=== PATIENT | male | born 1970 | race Hispanic/Latino ===

== ENCOUNTER 2019-06-06 23:55 | Emergency (ER) | payer SELFPAY ==
[2019-06-07] MEDS ORDERED: ANTIBIOTIC OINT TP ONE (00:49)
[2019-06-07] MEDS ORDERED: DILAUDID IM ONE ×2 (00:49→01:50)
[2019-06-07] MEDS ORDERED: DILAUDID ONE (00:50)
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
--- NOTE | 2019-06-07 01:00 | XRay Report ---
RIGHT CLAVICLE 2 VIEWS INDICATION / CLINICAL INFORMATION: Right clavicle pain. COMPARISON: None available. FINDINGS: BONES and JOINT(S): There is an acute fracture through the middle third of the right clavicle with ov erlapping segments. No dislocation. No significant arthritis. SOFT TISSUES: No significant abnormality. ADDITIONAL FINDINGS: None. IMPRESSION: Acute right clavicle fracture. Signer Name: Kole Roach MD Signed: 06/07/2019 12:55 AM Workstation Name: [email or web address]
--- NOTE | 2019-06-07 01:03 | XRay Report ---
RIGHT RIBS PLUS CHEST 4 VIEWS INDICATION / CLINICAL INFORMATION: Right rib and chest pain. COMPARISON: None available. FINDINGS: BONES and JOINT(S): There is acute fracture of the middle third of the right clavicle with mild displ acement. Fractures of the posterior right fifth and seventh ribs are of uncertain age. No dislocation is seen. No significant arthritis. SOFT TISSUES: No significant abnormality. ADDITIONAL FINDINGS: None. IMPRESSION: 1. Acute right clavicle fracture. 2. Fractures of the right fifth and seventh ribs are of uncertain age. Please correlate with the clin ical findings. Signer Name: Kole Roach MD Signed: 06/07/2019 12:59 AM Workstation Name: [id number]
--- NOTE | 2019-06-07 02:21 | XRay Report ---
BILATERAL ELBOWS 7 VIEWS INDICATION / CLINICAL INFORMATION: Bilateral elbow abrasions after fall. Bilateral elbow pain. COMPARISON: None available. FINDINGS: BONES and JOINT(S): No acute fracture or subluxation. No significant arthritis. SOFT TISSUES: No significant abnormality. ADDITIONAL FINDINGS: None. IMPRESSION: No acute findings. Signer Name: Kole Roach MD Signed: 06/07/2019 2:17 AM Workstation Name: [id number]
[2019-06-07 02:32] VITALS: BP 167/100
== END 2019-06-07 02:55 | disposition home or self-care (01) ==
LOC: ED 23:55
DX: S42.021A Displaced fracture of shaft of right clavicle, initial encounter for closed fracture (principal); S50.312A Abrasion of left elbow, initial encounter; S50.311A Abrasion of right elbow, initial encounter; W18.30XA Fall on same level, unspecified, initial encounter; Y93.89 Activity, other specified; Y92.89 Other specified places as the place of occurrence of the external cause; Y99.8 Other external cause status
CPT/HCPCS: 71101; 73000; 73080; 96372; 99284; J1170

== ENCOUNTER 2020-08-16 06:06 | Emergency (ER) | payer SELFPAY ==
[2020-08-16] MEDS ORDERED: ASPIRIN 325 MG TAB PO ONE (06:28)
--- NOTE | 2020-08-16 07:19 | XRay Report ---
CHEST 1 VIEW INDICATION: Chest Pain COMPARISON: None FINDINGS: Support devices: None Heart: Normal Lungs/Pleura: No acute pulmonary or pleural findings. IMPRESSION: 1. No acute disease. Signer Name: Bertin Morales MD Signed: 08/16/2020 7:14 AM Workstation Name: [id number]
[2020-08-16 07:31] LABS: Basophils # (Auto) 0.1 K/mm3 (0.0-0.1); Basophils % (Auto) 1.2 % (0.0-1.8); Eosinophils # (Auto) 0.1 K/mm3 (0.0-0.4); Eosinophils % (Auto) 1.4 % (0.0-4.3); Hematocrit 41.6 % (35.5-45.6); Hemoglobin 14.3 gm/dl (11.8-15.2); Lymphocytes # (Auto) 1.9 K/mm3 (1.2-5.4); Lymphocytes % (Auto) 20.3 % (13.4-35.0); Mean Corpuscular HGB Conc 34 % (32-34); Mean Corpuscular Volume 92 fl (84-94); Monocytes # (Auto) 0.6 K/mm3 (0.0-0.8); Monocytes % (Auto) 6.4 % (0.0-7.3); Platelet Count 240 K/mm3 (140-440); Red Blood Count 4.54 M/mm3 (3.65-5.03); Red Cell Distribution Width 14.5 % (13.2-15.2)
[2020-08-16 07:45] LABS: BUN/Creatinine Ratio 18; Blood Urea Nitrogen 14 mg/dL (9-20); Calcium 9.1 mg/dL (8.4-10.2); Hemolysis Index 154
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
[2020-08-16 11:29] VITALS: BP 181/107
[2020-08-16] MEDS ORDERED: amLODIPine 5 MG TAB PO ONE (11:33)
== END 2020-08-16 11:44 | disposition admitted as inpatient to this hospital (09) ==
LOC: ED 06:06
DX: I10 Essential (primary) hypertension (principal); R07.89 Other chest pain; N20.0 Calculus of kidney; F17.200 Nicotine dependence, unspecified, uncomplicated; Z98.890 Other specified postprocedural states; Z79.82 Long term (current) use of aspirin; Z79.1 Long term (current) use of non-steroidal anti-inflammatories (NSAID); Z79.2 Long term (current) use of antibiotics; Z79.899 Other long term (current) drug therapy; Z88.0 Allergy status to penicillin
CPT/HCPCS: 36415; 71045; 80048; 84484; 85025; 93005

== ENCOUNTER 2021-02-12 19:21 | Inpatient (IN) | payer OTHER ==
[2021-02-12] MEDS ORDERED: MORPHINE 4 MG/1 ML INJ IV ONE (19:49)
[2021-02-12] MEDS ORDERED: KETOROLAC 30 MG/1 ML INJ IV ONE (19:49)
[2021-02-12] MEDS ORDERED: ONDANSETRON 4 MG/2 ML INJ IV ONE (19:49)
--- NOTE | 2021-02-12 19:51 | Event Note ---
ED Screening Note Date of service: 02/12/21 Time: 19:49 ED Screening Note: 50-year-old male patient with history of recurrent kidney stones presents to the emergency department complaints of nontraumatic left lower back pain starting today. Patient reports associated nausea and hematuria. States his current symptoms are reminiscent of prior kidney stone requiring lithotripsy, 11 mm. General: Awake, appropriately interactive. Appears uncomfortable. Neck: Supple. Full range of motion intact. Cardiovascular: Normal peripheral perfusion. Pulmonary: No respiratory distress. Patient is speaking normally without use of accessory muscles. Abdomen: Soft, nontender. Skin: No apparent rashes or lesions. Neurological: No facial asymmetry. Speech is clear. Follows commands. Patient is alert and oriented. Musculoskeletal: Left CVA tenderness. Psych: Cooperative. Appropriate mood and affect. This initial assessment/diagnostic orders/clinical plan/treatment(s) is/are subject to change based on patients health status, clinical progression and re- assessment by fellow clinical providers in the ED. Further treatment and workup at subsequent clinical providers discretion. Patient/guardian urged not to elope from the ED as their condition may be serious if not clinically assessed and m anaged.
[2021-02-12 20:20] LABS: Basophils # (Auto) 0.1 K/mm3 (0.0-0.1); Basophils % (Auto) 0.5 % (0.0-1.8); Eosinophils # (Auto) 0.1 K/mm3 (0.0-0.4); Eosinophils % (Auto) 0.5 % (0.0-4.3); Hematocrit 41.9 % (35.5-45.6); Hemoglobin 14.1 gm/dl (11.8-15.2); Lymphocytes # (Auto) 1.6 K/mm3 (1.2-5.4); Lymphocytes % (Auto) 9.9 % (13.4-35.0); Mean Corpuscular HGB Conc 34 % (32-34); Mean Corpuscular Volume 92 fl (84-94); Monocytes # (Auto) 1.2 K/mm3 (0.0-0.8); Platelet Count 283 K/mm3 (140-440); Red Blood Count 4.55 M/mm3 (3.65-5.03); Red Cell Distribution Width 14.4 % (13.2-15.2)
--- NOTE | 2021-02-12 20:56 | Cat Scan Report ---
CT ABDOMEN AND PELVIS WITHOUT CONTRAST INDICATION: Left-sided flank pain. History of kidney stones. TECHNICAL: Multiple axial CT images of the abdomen and pelvis were acquired without intravenous contr ast. Sagittal and coronal reformats were obtained. All CTs at this facility utilize dose reduction techniques including automated exposure control, iterative reconstruction and weight based dosing whe n appropriate to reduce patient radiation dose to as low as reasonable achievable. COMPARISON: No relevant prior studies are available for comparison. FINDINGS: Limited imaging of the bilateral lung bases demonstrates emphysematous change. ABDOMEN: The liver, gallbladder, stomach, spleen, pancreas, bilateral adrenal glands and right kidney show no evidence of acute abnormality. There are a few punctate nonobstructing stones within the right kidney . There is moderate left-sided hydronephrosis and perinephric stranding. There is also moderate dilatat ion of the left ureter. There is an obstructing stone in the mid left ureter measuring 0.8 x 1.1 cm. There is no evidence of bowel obstruction. The abdominal aorta is normal in caliber with minimal athe rosclerotic calcifications. The appendix is visualized and appears normal. PELVIS: No free fluid is seen within the pelvis. The urinary bladder appears normal. BONES AND SOFT TISSUES: No significant abnormality. IMPRESSION: 1. Obstructing 1.1 cm stone in the mid left ureter causing moderate left-sided hydronephrosis and hyd roureter. Signer Name: Teresa Le MD Signed: 02/12/2021 8:52 PM Workstation Name: [id number]
[2021-02-12 21:12] LABS: Alanine Aminotransferase 21 units/L (7-56); Albumin 4.3 g/dL (3.9-5); BUN/Creatinine Ratio 19; Blood Urea Nitrogen 19 mg/dL (9-20); Calcium 10.1 mg/dL (8.4-10.2); Hemolysis Index 27
[2021-02-12 21:54] LABS: Bilirubin,Urine NEG (Negative); Blood,Urine LG (Negative); Color,Urine Red (Yellow); Mucus,Urine FEW /HPF; Urobilinogen,Urine < 2.0 mg/dL (<2.0)
[2021-02-12 21:56] LABS: RBC,Urine > 182.0 /HPF (0.0-6.0)
[2021-02-12] MEDS ORDERED: MORPHINE 4 MG/1 ML INJ ONE (22:58)
[2021-02-12] MEDS ORDERED: ONDANSETRON 4 MG/2 ML INJ ONE (22:58)
[2021-02-12] MEDS ORDERED: SODIUM CHLORIDE 0.9% 1000 ML 1,000 ML ONE (22:58)
[2021-02-12] MEDS ORDERED: KETOROLAC 30 MG/1 ML INJ ONE (23:01)
[2021-02-12] MEDS ORDERED: HYDROmorphone 1 MG/1 ML INJ IV ONE (23:08)
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
[2021-02-13] MEDS ORDERED: MAGNESIUM HYDROXIDE (MOM) ORAL LIQD UDC PO PRN (00:14)
[2021-02-13] MEDS ORDERED: DOCUSATE SODIUM 100 MG CAP PO PRN (00:14)
[2021-02-13] MEDS ORDERED: ONDANSETRON 4 MG/2 ML INJ IV PRN ×2 (00:14→14:56)
[2021-02-13] MEDS ORDERED: SENNOSIDES 8.6 MG TAB PO PRN (00:14)
[2021-02-13] MEDS ORDERED: ALUM-MAG HYDROXIDE-SIMETHICONE 200-200-20MG/5ML ORAL LIQD 30 ML PO PRN (00:14)
[2021-02-13] MEDS ORDERED: SODIUM CHLORIDE 0.9% 1000 ML 1,000 ML IV SCH (00:15)
[2021-02-13] MEDS ORDERED: traZODone 50 MG TAB PO PRN (00:17)
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
[2021-02-13] MEDS ORDERED: MORPHINE 2 MG/1 ML INJ ONE (00:28)
[2021-02-13] MEDS ORDERED: methylPREDNISolone Sod Succinate 125 MG/2 ML INJ ONE (00:35)
[2021-02-13] MEDS ORDERED: diphenhydrAMINE 50 MG/ML VIAL ONE (00:35)
[2021-02-13] MEDS ORDERED: methylPREDNISolone Sod Succinate 125 MG/2 ML INJ IV ONE (01:11)
[2021-02-13] MEDS ORDERED: diphenhydrAMINE 50 MG/ML VIAL IV ONE (01:11)
[2021-02-13] MEDS ORDERED: HYDROmorphone 1 MG/1 ML INJ IV ONE (01:11)
[2021-02-13] MEDS ORDERED: hydrALAZINE 20 MG/1 ML INJ IV PRN (01:19)
[2021-02-13] MEDS ORDERED: hydrALAZINE 20 MG/1 ML INJ IV SCH (02:00)
[2021-02-13] MEDS: cefTRIAXone/NS 1 GM/50 ML 1 GM/50 ML BAG IV SCH ×2 (02:18→10:00)
[2021-02-13] MEDS: MORPHINE 2 MG/1 ML INJ IV PRN ×3 (04:17→20:20)
[2021-02-13] MEDS: ACETAMINOPHEN 325 MG TAB PO PRN (06:00)
[2021-02-13] MEDS ORDERED: HYDROmorphone 2 MG/1 ML INJ IV ONE (07:45)
[2021-02-13] MEDS: ENOXAPARIN 40 MG/0.4 ML INJ SUB-Q SCH ×2 (08:27→12:30)
[2021-02-13] MEDS: FAMOTIDINE 20 MG/2 ML INJ IV SCH ×3 (08:28→21:13)
[2021-02-13] MEDS: METOCLOPRAMIDE 10 MG/2 ML INJ IV PRN ×2 (08:29→20:21)
[2021-02-13] MEDS ORDERED: LORazepam 2 MG/ML VIAL IV ONE (08:37)
[2021-02-13] MEDS: D5W/0.9% NACL 1,000 ML IV SCH ×2 (10:48→20:33)
--- NOTE | 2021-02-13 11:08 | Progress Note ---
Assessment and Plan (1) Pyelonephritis Current Visit: Yes Status: Acute Plan to address problem: Antibiotic therapy Urine culture follow-up with results (2) Kidney stone on left side Current Visit: Yes Status: Acute Plan to address problem: CT of the abdomen shows kidney stone Continue IV hydration Pain management (3) Hydronephrosis Current Visit: Yes Status: Acute Qualifiers: Hydronephrosis type: with ureteral calculous obstruction Qualified Code(s): N13.2 - Hydronephrosis with renal and ureteral calculous obstruction Plan to address problem: Continue IV hydration CT of the abdomen and pelvis shows obstructing kidney stone And hydronephrosis (4) Low back strain Current Visit: No Status: Acute Plan to address problem: pain management (5) Leukocytosis with SIRS Current Visit: Yes Status: Acute Plan to address problem: Likely secondary to kidney infection and nephrolithiasis Monitor WBC follow-up with a urine culture result Continue IV hydration (6) DVT prophylaxis Current Visit: Yes Status: Acute Plan to address problem: SQ Lovenox Daily clinical course: 02/13/21; continue empiric antibiotics, continue IV pain management as needed, aggressive IV fluid. Discussed with urology we will keep the patient n.p.o. Follow temperature curve monitor CBC and BMP. Subjective Date of service: 02/13/21 Interval history: Patient seen and examined. Medical records and medication list reviewed. No acute event overnight noted by the RN. Patient complaining of left lower back pain. Discussed with urologist by phone Discussed plan of care at bedside with patient. Objective - Exam Narrative Exam: GENERAL: well-developed and well-nourished white male lying on bed appeared to be in no discomfort. HEENT: Normocephalic. Atraumatic. No conjunctival congestion or icterus. Patient has moist mucous membranes. NECK: Supple. Trachea midline. CHEST/LUNGS: Clear to auscultated bilaterally, breathing nonlabored. No wheezes crackles or rhonchi. HEART/CARDIOVASCULAR: Regular in rate and rhythm. S1 and S2 positive. ABDOMEN: Abdomen is soft, left CVA tenderness. Patient has normal bowel sounds. SKIN: There is no rash. Warm and dry. NEURO: No focal motor deficit. Follows command. MUSCULOSKELETAL: No joint effusion or tenderness. EXTRIMITY: No edema, no cyanosis or clubbing. PSYCH: Cooperative. - Constitutional Vitals: Vital Signs - 12hr 02/13/21 02/13/21 02/13/21 01:03 05:52 05:58 Temperature 98.3 F Pulse Rate 67 74 75 Respiratory 16 24 Rate Blood Pressure 188/121 188/121 Blood Pressure 163/107 [right arm] O2 Sat by Pulse 96 97 Oximetry 02/13/21 08:22 Temperature Pulse Rate Respiratory 20 Rate Blood Pressure Blood Pressure 168/100 [right arm] O2 Sat by Pulse Oximetry - Labs CBC & Chem 7: 02/12/21 20:07 02/12/21 20:07 Labs: Abnormal lab results 02/12/21 02/12/21 02/12/21 Range/Units 20:07 20:07 Unknown WBC 16.5 H (4.5-11.0) K/mm3 Lymph % (Auto) 9.9 L (13.4-35.0) % [place] # (Auto) 1.2 H (0.0-0.8) K/mm3 Seg Neutrophils % 82.1 H (40.0-70.0) % Seg Neutrophils # 13.5 H (1.8-7.7) K/mm3 Sodium 136 L (137-145) mmol/L Chloride 97.3 L (98-107) mmol/L Glucose 130 H (75-100) mg/dL Urine WBC (Auto) 27.0 H (0.0-6.0) /HPF
[2021-02-13] MEDS: amLODIPine 10 MG TAB PO SCH (12:31)
[2021-02-13] MEDS ORDERED: propofoL 200 MG/20 ML VIAL IV ONE (14:46)
[2021-02-13] MEDS ORDERED: HYDROmorphone 1 MG/1 ML INJ ONE (14:46)
[2021-02-13] MEDS ORDERED: LIDOCAINE MPF (2%) 20 MG/1 ML VIAL 5 ML ONE (14:46)
[2021-02-13] MEDS ORDERED: HYDROmorphone 1 MG/1 ML INJ IV PRN ×2 (14:56)
--- NOTE | 2021-02-13 14:57 | Anesthesia Day of Surgery ---
Anesthesia Day of Surgery - Day of Surgery Patient Examined: Yes Patient H&P Reviewed: Yes Patient is NPO: Yes
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
[2021-02-13] MEDS ORDERED: SODIUM CHLORIDE 0.9% 1000 ML 1,000 ML ONE (15:41)
[2021-02-13] MEDS ORDERED: GENTAMICIN 40 MG/ML VIAL 2 ML ONE (15:43)
[2021-02-13] MEDS ORDERED: WATER FOR IRRIG STERILE 2000 ML IR ONE (15:56)
[2021-02-13] MEDS ORDERED: WATER FOR IRRIG STERILE 1,500 ML BOTTLE IR ONE (15:56)
[2021-02-13] MEDS ORDERED: KETOROLAC 30 MG/1 ML INJ ONE (15:58)
[2021-02-13] MEDS ORDERED: SODIUM CHLORIDE 0.9% 100 ML ONE (15:59)
[2021-02-13] MEDS ORDERED: ONDANSETRON 4 MG/2 ML INJ ONE (15:59)
--- NOTE | 2021-02-13 16:06 | Post Operative Note ---
Date of procedure: 02/13/21 Pre-op diagnosis: left UPJ STONE Post-op diagnosis: same Procedure: CYSTO, RPG, LEFT STENT WITH EXTERNAL STRING Anesthesia: KYLE Surgeon: THONY GARCIA Pathology: none Condition: stable Disposition: PACU ([facility], POST OP INFO ON CHART/OK TO DC HOME / NEEDS ESWL)
--- NOTE | 2021-02-13 16:19 | Post Anesthesia Evaluation ---
- Post Anesthesia Evaluation Patient Participated: Yes Airway Patent: Yes Stable Respiratory Function: Yes Nausea/Vomiting: No Temp > 96.8F: Yes Pain Manageable: Yes Adequeate Hydration: Yes Anesthesia Complications: No Block Receding Appropriately: Not Applicable Patient on Ventilator: No
--- NOTE | 2021-02-13 17:10 | Operative Report ---
PREOPERATIVE DIAGNOSIS: Left ureteropelvic junction stone, 1 cm. POSTOPERATIVE DIAGNOSIS: Left ureteropelvic junction stone, 1 cm with colic. PROCEDURES: Cystoscopy, bilateral retrograde pyelograms, left double-J stent placement (6-Cameroonian 24 cm with an external string). SURGEON: Fernando Mojica MD. ANESTHESIA: General. ESTIMATED BLOOD LOSS: Minimal. FLUIDS: Crystalloid. COMPLICATIONS: No complications. INDICATIONS: This patient is a 50-year-old gentleman presented to the Emergency Room with left flank pain. CT of abdomen and pelvis revealed a 1-cm left renal proximal ureteral versus ureteropelvic junction stone with hydro. The patient also has a history of back pain and back surgery. He was admitted to the hospital and we were consulted on the floor for evaluation. The patient continued to have persistent pain, presents now for surgical intervention. He has a history of stones in the past. DESCRIPTION OF PROCEDURE: The patient was taken to the operative suite, placed in a supine position. After adequate general anesthesia, placed in a dorsal lithotomy position, prepped and draped in a sterile fashion. Pancystourethroscopy was performed with a 22-Cameroonian Storz cystoscope, no urethral abnormalities. Prostate minimally obstructing. Bladder, no tumors or stones were noted. Both ureteral orifices in normal position. Bilateral retrograde pyelograms were obtained with an 8-Cameroonian Rosi catheter and 8 mL of contrast. No filling defects or obstruction on the right. Left side, obvious 1 cm UPJ stone. A 0.035 Glidewire was placed, 6-Cameroonian 24 cm double-J stent with an external string was left indwelling, confirmed under fluoroscopy to be in excellent position. Bladder was drained. Rectal exam was benign. He was extubated and taken to recovery room. He will go home on Bactrim and Burnet and follow up in the office. JOB# [id number] [facility]
--- NOTE | 2021-02-13 18:26 | Fluoroscopy Report ---
EXAMINATION: Retrograde urography, 02/13/2021 CLINICAL INFORMATION: History of left-sided renal stone. COMPARISON: CT of the abdomen and pelvis, 02/12/2021 FINDINGS: There is retrograde filling of both collecting systems. Small circumscribed filling defect is noted w ithin the mid right ureter which may be related to small amount of air. Subsequent images demonstrate placement of guidewire followed by double-J ureteral stent projecting i n expected position. Please see procedure report from the performing physician for additional details. IMPRESSION: 1. Placement of left-sided ureteral stent in expected position. Fluoroscopy time: 47 seconds. Fluoroscopy images: 5. Signer Name: Teresa Le MD Signed: 02/13/2021 6:21 PM Workstation Name: [id number]
[2021-02-14] MEDS: HYDROmorphone 1 MG/1 ML INJ IV PRN ×3 (03:19→12:16)
[2021-02-14] MEDS: MORPHINE 2 MG/1 ML INJ IV PRN ×2 (05:13→10:14)
[2021-02-14] MEDS: D5W/0.9% NACL 1,000 ML IV SCH (05:20)
[2021-02-14] MEDS: FAMOTIDINE 20 MG/2 ML INJ IV SCH (09:13)
[2021-02-14] MEDS: cefTRIAXone/NS 1 GM/50 ML 1 GM/50 ML BAG IV SCH (09:13)
[2021-02-14] MEDS: amLODIPine 10 MG TAB PO SCH (09:13)
[2021-02-14 09:14] LABS: Basophils % (Auto) 0.1 % (0.0-1.8); Hematocrit 37.8 % (35.5-45.6); Hemoglobin 12.4 gm/dl (11.8-15.2); Lymphocytes # (Auto) 1.5 K/mm3 (1.2-5.4); Mean Corpuscular HGB Conc 33 % (32-34); Mean Corpuscular Volume 92 fl (84-94); Monocytes # (Auto) 1.1 K/mm3 (0.0-0.8); Monocytes % (Auto) 6.7 % (0.0-7.3); Platelet Count 249 K/mm3 (140-440); Red Blood Count 4.11 M/mm3 (3.65-5.03); Red Cell Distribution Width 14.7 % (13.2-15.2)
[2021-02-14] MEDS: ENOXAPARIN 40 MG/0.4 ML INJ SUB-Q SCH (09:14)
[2021-02-14] MEDS: ACETAMINOPHEN 325 MG TAB PO PRN (09:27)
[2021-02-14 09:42] LABS: Alanine Aminotransferase 11 units/L (7-56); Albumin 3.3 g/dL (3.9-5); BUN/Creatinine Ratio 17; Blood Urea Nitrogen 15 mg/dL (9-20); Calcium 8.1 mg/dL (8.4-10.2); Hemolysis Index 3
--- NOTE | 2021-02-14 10:37 | Discharge Summary ---
Providers - Providers Date of Admission: 02/12/21 23:18 Date of discharge: 02/14/21 Attending physician: JERRI BLOUNT [facility] Condition: Critical Disposition: DC-01 TO HOME OR SELFCARE Final Discharge Diagnosis (Prints w/discharge instructions): Acute pyelonephritis, left sided nephrolithiasis, left hydronephrosis, leukocytosis with SIRS, hypertension. Time spent for discharge: 34 minutes Core Measure Documentation - Palliative Care Palliative Care/ Comfort Measures: Not Applicable - Core Measures Any of the following diagnoses?: none Exam - Physical Exam Narrative exam: GENERAL: well-developed and well-nourished white male lying on bed appeared to be in no discomfort. HEENT: Normocephalic. Atraumatic. No conjunctival congestion or icterus. Patient has moist mucous membranes. NECK: Supple. Trachea midline. CHEST/LUNGS: Clear to auscultated bilaterally, breathing nonlabored. No wheezes crackles or rhonchi. HEART/CARDIOVASCULAR: Regular in rate and rhythm. S1 and S2 positive. ABDOMEN: Abdomen is soft, left CVA tenderness. Patient has normal bowel sounds. SKIN: There is no rash. Warm and dry. NEURO: No focal motor deficit. Follows command. MUSCULOSKELETAL: No joint effusion or tenderness. EXTRIMITY: No edema, no cyanosis or clubbing. PSYCH: Cooperative. - Constitutional Vitals: Temp Pulse Resp BP Pulse Ox 99.5 F 82 18 168/92 96 02/13/21 21:46 02/14/21 09:13 02/13/21 21:46 02/14/21 09:13 02/13/21 21:46 Plan Activity: advance as tolerated Weight Bearing Status: Weight Bear as Tolerated Diet: low fat, low salt Additional Instructions: Follow-up with Dr. Mojica in 1 week. Resume baby aspirin after 1 week Follow up with: ILIA PATEL MD [Primary Care Provider] - 7 Days THONY MOJICA MD [Staff Physician] - 7 Days Prescriptions: Sulfamethoxazole/Trimethoprim [Bactrim DS TAB] 1 each PO BID #14 tablet Promethazine [Phenergan] 25 mg PO Q6H PRN #12 tablet PRN Reason: Nausea oxyCODONE [roxiCODONE] 5 mg PO Q6HR PRN #15 tablet PRN Reason: Pain lisinopriL [Zestril TAB] 5 mg PO QDAY #30 tablet
[2021-02-14 12:17] VITALS: BP 130/80
[2021-02-14] MEDS ORDERED: LISINOPRIL 5 MG TAB PO SCH (13:00)
== END 2021-02-14 14:00 | disposition home or self-care (01) | DRG 660 ==
LOC: ED 19:21 → 3A 23:18 → OBSVTOIN 23:18
PROVIDERS: ADMIT Internal Medicine Geriatric Medicine; ATTEND Internal Medicine
PROC: 0T778DZ Dilation of Left Ureter with Intraluminal Device, Via Natural or Artificial Opening Endoscopic (ICD-10-PCS; principal; 2021-02-13)
PROC: BT141ZZ Fluoroscopy of Kidneys, Ureters and Bladder using Low Osmolar Contrast (ICD-10-PCS; 2021-02-13)
DX: N13.6 Pyonephrosis (principal); N30.01 Acute cystitis with hematuria; R65.10 Systemic inflammatory response syndrome (SIRS) of non-infectious origin without acute organ dysfunction; Z88.1 Allergy status to other antibiotic agents; Z88.0 Allergy status to penicillin; G89.29 Other chronic pain; F17.200 Nicotine dependence, unspecified, uncomplicated; I10 Essential (primary) hypertension; S39.012A Strain of muscle, fascia and tendon of lower back, initial encounter; X58.XXXA Exposure to other specified factors, initial encounter; D72.829 Elevated white blood cell count, unspecified
CPT/HCPCS: 36415; 74176; 74420; 80053; 81001; 82962; 85025; 87086; 96365; 96375; G0378; A4217; C1758; C1769; C2617; J0360; J0696; J1170; J1200; J1580; J1650; J1885; J1956; J2060; J2270; J2405; J2704; J2765; J2930; J7030; J7042; Q9967

== ENCOUNTER 2021-02-25 08:55 | Day surgery (SDC) | payer OTHER ==
[~2021-02-25 08:55] MED LIST: LACTATED RINGERS 1,000 ML IV SCH; MIDAZOLAM 2 MG/2 ML INJ IV NR
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
--- NOTE | 2021-02-25 09:29 | Anesthesia Day of Surgery ---
Anesthesia Day of Surgery - Day of Surgery Patient Examined: Yes Patient H&P Reviewed: Yes Patient is NPO: Yes
[2021-02-25] MEDS ORDERED: ONDANSETRON 4 MG/2 ML INJ IV PRN (09:30)
[2021-02-25] MEDS ORDERED: HYDROcodone/ACETAMINOPHEN 5-325 MG TAB PO PRN (09:30)
[2021-02-25] MEDS ORDERED: fentaNYL 100 MCG/2 ML INJ IV PRN (09:30)
[2021-02-25] MEDS ORDERED: dexAMETHasone 20 MG/5 ML VIAL ONE (09:56)
[2021-02-25] MEDS ORDERED: fentaNYL 100 MCG/2 ML INJ ONE (09:56)
[2021-02-25] MEDS ORDERED: ONDANSETRON 4 MG/2 ML INJ ONE (09:56)
[2021-02-25] MEDS ORDERED: LIDOCAINE MPF (2%) 20 MG/1 ML VIAL 5 ML ONE (09:56)
[2021-02-25] MEDS ORDERED: propofoL 200 MG/20 ML VIAL IV ONE (09:57)
[2021-02-25] MEDS ORDERED: GENTAMICIN/NS 80 MG/100 ML 100 ML IV SCH (10:30)
--- NOTE | 2021-02-25 11:53 | Short Stay Summary ---
Short Stay Documentation Date of service: 02/25/21 - History H&P: obtained from office - Allergies and Medications Current Medications: Allergies Penicillins Allergy (Intermediate, Verified 11/30/14 12:07) Anaphylaxis levofloxacin [From Levaquin] Allergy (Verified 02/13/21 01:10) Hives Home Medications Medication Instructions Recorded Confirmed Last Taken Type Sulfamethoxazole/Trimethoprim 1 each PO BID #14 tablet 02/14/21 02/25/21 02/24/21 Rx [Bactrim DS TAB] lisinopriL [Zestril TAB] 5 mg PO QDAY #30 tablet 02/14/21 02/25/21 02/24/21 Rx oxyCODONE [roxiCODONE] 5 mg PO Q6HR PRN #15 tablet 02/14/21 02/25/21 02/24/21 Rx Aspirin 325 mg PO DAILY 02/24/21 02/24/21 1 Week Ago History ~02/18/21 Ibuprofen 2 cap PO PRN 02/24/21 02/24/21 1 Week Ago History ~02/18/21 Methodone 100 mg PO QDAY 02/24/21 02/25/21 02/25/21 06:00 History Active Medications Hydrocodone Bitart/Acetaminophen (Hydrocodone/Acetaminophen 5-325 Mg Tab) 2 each PO ONCE PRN PRN Reason: Pain, Moderate (4-6) Fentanyl (Fentanyl 100 Mcg/2 Ml Inj) 50 mcg IV Q5MIN PRN PRN Reason: Pain , Severe (7-10) Stop: 02/26/21 09:29 Lactated Ringer's (Lactated Ringers) 1,000 mls @ 100 mls/hr IV DIRECT KELOTN Stop: 02/25/21 23:59 Last Admin: 02/25/21 09:55 Dose: 100 mls/hr Documented by: Gentamicin Sulfate/Sodium Chloride (Gentamicin/Ns 80 Mg/100 Ml) 100 mls @ 200 mls/hr IV PREOP KEL[facility] Stop: 02/25/21 17:00 Midazolam HCl (Midazolam 2 Mg/2 Ml Inj) 2 mg IV PREOP NR Stop: 02/25/21 23:00 Last Admin: 02/25/21 09:58 Dose: 2 mg Documented by: Ondansetron HCl (Ondansetron 4 Mg/2 Ml Inj) 4 mg IV ONCE PRN PRN Reason: Nausea And Vomiting - Brief post op/procedure progress note Date of procedure: 02/25/21 Pre-op diagnosis: left ureteral stone Post-op diagnosis: same Procedure: eswl Anesthesia: GETA Surgeon: THONY GARCIA Condition: stable - Hospital course Hospital course: post op info on chart, pt has evangelina & silvestre from 02-23-21 - Disposition Condition at discharge: Stable Disposition: DC-01 TO HOME OR SELFCARE Short Stay Discharge Plan Follow up with: ILIA PATEL MD [Primary Care Provider] - 7 Days
[2021-02-25 12:48] VITALS: BP 134/68
--- NOTE | 2021-02-25 12:50 | Post Anesthesia Evaluation ---
- Post Anesthesia Evaluation Patient Participated: Yes Airway Patent: Yes Stable Respiratory Function: Yes Nausea/Vomiting: No Temp > 96.8F: Yes Pain Manageable: Yes Adequeate Hydration: Yes Anesthesia Complications: No
--- NOTE | 2021-02-26 05:28 | Operative Report ---
PREOPERATIVE DIAGNOSIS: Left mid ureteral stone, 11 mm. POSTOPERATIVE DIAGNOSIS: Left mid ureteral stone, 11 mm. PROCEDURE: Extracorporal shock wave lithotripsy. SURGEON: Fernando Mojica MD ANESTHESIA: General. ESTIMATED BLOOD LOSS: Minimal. FLUIDS: Crystalloid, staged procedure. INDICATIONS: This patient is a 50-year-old gentleman presented to the Emergency Room with left flank pain. CT of the abdomen and pelvis revealed a left-sided 11 mm stone with hydro. He underwent cystoscopy, stent placement to control his pain. He presents now for lithotripsy. The patient states he removed the stent via string; however, he still has pain. DESCRIPTION OF PROCEDURE: The patient was taken to the operative suite, placed in a supine position. After adequate general anesthesia, placed in a supine position. His stone was localized in 2 planes using fluoroscopy. Extracorporal shock wave lithotripsy was administered with a maximum kV of 9 and 3000 shocks. There was noted to have a good fragmentation of the stones. The patient tolerated the procedure well and was extubated and taken to recovery room in stable condition. The patient has his pain medicine from previous appointment. JOB# [id number] [facility]
== END 2021-02-25 13:15 | disposition home or self-care (01) ==
LOC: OR 08:55
PROVIDERS: ATTEND Urology
DX: N20.0 Calculus of kidney (principal); F17.210 Nicotine dependence, cigarettes, uncomplicated; I10 Essential (primary) hypertension; Z87.440 Personal history of urinary (tract) infections; Z88.0 Allergy status to penicillin; Z79.899 Other long term (current) drug therapy; Z88.8 Allergy status to other drugs, medicaments and biological substances; Z98.890 Other specified postprocedural states
CPT/HCPCS: 50590; J1100; J1580; J2250; J2405; J2704; J3010; J7120